=== PATIENT | female | born 1970 | race Caucasian/White ===

== ENCOUNTER 2018-10-20 08:58 | Emergency (ER) | payer MEDICAID ==
[2018-10-20] MEDS ORDERED: LORazepam 2 MG/ML SDV IVPUSH ONE ×2 (09:33→09:49)
[2018-10-20] MEDS ORDERED: Sodium Chloride 0.9% 1,000 ML IV SCH (09:45)
[2018-10-20] MEDS ORDERED: LORazepam 2 MG/ML SDV ONE (09:47)
--- NOTE | 2018-10-20 09:53 | EDM.PDOC ---
ED HPI GENERAL MEDICAL PROBLEM - General Chief Complaint: Chest Pain Stated Complaint: CHEST PAINS Time Seen by Provider: 10/20/18 09:30 Source of Information: Reports: Patient History Limitations: Reports: No Limitations - History of Present Illness INITIAL COMMENTS - FREE TEXT/NARRATIVE: 48-year-old female with chronic anxiety, is under a lot of stress right now as her was recently put on a 72 hour hold. She's been evaluated for cardiac problems in [place] several times, she is at a local concert but has been anxious for the last 48 hours, numbness in her hands and feet and today started having chest tightness so was brought in. She did not want to go to [place]. A friend brought her here. She arrived hyperventilating and very anxious, asking if she was having a heart attack. Initial blood pressure was 210 /85, she asked what her blood pressure was in when told she became more anxious. Duration: Day(s): (Waxing and waning over the last 2 days, symptoms resolved when sleeping) Chest Pain Score (Numeric/FACES): 6 - Related Data Allergies Allergy/AdvReac Type Severity Reaction Status Date / Time No Known Allergies Allergy Verified 10/20/18 09:05 Home Meds: Home Meds FLUoxetine HCl [Prozac] 40 mg PO DAILY 10/20/18 [History] Past Medical History Psychiatric History: Reports: Anxiety, Depression Social & Family History - Tobacco Use Smoking Status *Q: Never Smoker - Caffeine Use Caffeine Use: Reports: Tea - Recreational Drug Use Recreational Drug Type: Reports: Marijuana/Hashish ED ROS GENERAL - Review of Systems Review Of Systems: See Below Constitutional: Reports: Malaise. Denies: Fever, Chills HEENT: Reports: Other (Some facial numbness) Respiratory: Reports: Shortness of Breath Cardiovascular: Reports: Chest Pain GI/Abdominal: Reports: Nausea, Vomiting : Reports: No Symptoms Skin: Reports: No Symptoms Neurological: Reports: Dizziness Psychiatric: Reports: Anxiety ED EXAM, GENERAL - Physical Exam Exam: See Below Exam Limited By: No Limitations General Appearance: Alert, Anxious, Mild Distress Eye Exam: Bilateral Eye: Normal Inspection Respiratory/Chest: No Respiratory Distress, Lungs Clear Cardiovascular: Regular Rate, Rhythm GI/Abdominal: Soft, Non-Tender Neurological: Alert, Oriented Psychiatric: Anxious Course - Vital Signs Last Recorded V/S: Last Vital Signs Temp 96.3 F 07/19/19 09:32 Pulse 81 10/20/18 11:24 Resp 16 10/20/18 11:24 BP 141/79 H 10/20/18 11:24 Pulse Ox 98 10/20/18 11:24 - Orders/Labs/Meds Labs: Laboratory Tests 10/20/18 10/20/18 10/20/18 Range/Units 09:32 09:33 10:03 WBC 7.1 (4.5-11.0) K/uL RBC 4.74 (3.30-5.50) M/uL Hgb 14.5 (12.0-15.0) g/dL Hct 40.8 (36.0-48.0) % MCV 86 (80-98) fL MCH 31 (27-31) pg MCHC 36 (32-36) % Plt Count 296 (150-400) K/uL Neut % (Auto) 75 H (36-66) % Lymph % (Auto) 13 L (24-44) % [place] % (Auto) 12 H (2-6) % Eos % (Auto) 0 L (2-4) % Baso % (Auto) 1 (0-1) % Puncture Site Lt brachial ABG pH 7.658 H* (7.350-7.450) ABG pCO2 15.2 L* (35.0-42.0) mmHg ABG pO2 95.4 (75.0-100.0) mmHg ABG HCO3 17.4 L (22.0-26.0) mmol/L ABG Total CO2 14.6 L (21.0-25.0) mmol/L ABG O2 Saturation 98.7 H (95.0-98.0) % ABG O2 Content 19.1 (15.0-23.0) %vol ABG Base Excess -0.8 mm/L ABG Hemoglobin 14.0 (12.0-16.0) g/dL ABG Oxyhemoglobin 96.4 % ABG Carboxyhemoglobin 1.6 (0.0-1.6) % ABG Methemoglobin 0.7 % Wil Test Not performed O2 Delivery Device Room air Sodium (140-148) mmol/L Potassium (3.6-5.2) mmol/L Chloride (100-108) mmol/L Carbon Dioxide (21-32) mmol/L Anion Gap (5.0-14.0) mmol/L BUN (7-18) mg/dL Creatinine (0.6-1.0) mg/dL Est Cr Clr Drug Dosing mL/min Estimated GFR (MDRD) (>60) Glucose (74-106) mg/dL Calcium (8.5-10.1) mg/dL Troponin I (0.000-0.056) ng/mL Urine Opiates Screen Negative (NEGATIVE) Ur Oxycodone Screen Negative (NEGATIVE) Urine Methadone Screen Negative (NEGATIVE) Ur Propoxyphene Screen Negative (NEGATIVE) Ur Barbiturates Screen Negative (NEGATIVE) Ur Tricyclics Screen Negative (NEGATIVE) Ur Phencyclidine Scrn Negative (NEGATIVE) Ur Amphetamine Screen Negative (NEGATIVE) U Methamphetamines Scrn Negative (NEGATIVE) Urine MDMA Screen Negative (NEGATIVE) U Benzodiazepines Scrn Negative (NEGATIVE) U Cocaine Metab Screen Negative (NEGATIVE) U Marijuana (THC) Screen Presumptive positive H (NEGATIVE) 10/20/18 Range/Units 10:03 WBC (4.5-11.0) K/uL RBC (3.30-5.50) M/uL Hgb (12.0-15.0) g/dL Hct (36.0-48.0) % MCV (80-98) fL MCH (27-31) pg MCHC (32-36) % Plt Count (150-400) K/uL Neut % (Auto) (36-66) % Lymph % (Auto) (24-44) % Swain % (Auto) (2-6) % Eos % (Auto) (2-4) % Baso % (Auto) (0-1) % Puncture Site ABG pH (7.350-7.450) ABG pCO2 (35.0-42.0) mmHg ABG pO2 (75.0-100.0) mmHg ABG HCO3 (22.0-26.0) mmol/L ABG Total CO2 (21.0-25.0) mmol/L ABG O2 Saturation (95.0-98.0) % ABG O2 Content (15.0-23.0) %vol ABG Base Excess mm/L ABG Hemoglobin (12.0-16.0) g/dL ABG Oxyhemoglobin % ABG Carboxyhemoglobin (0.0-1.6) % ABG Methemoglobin % Wil Test O2 Delivery Device Sodium 137 L (140-148) mmol/L Potassium 3.9 (3.6-5.2) mmol/L Chloride 100 (100-108) mmol/L Carbon Dioxide 19 L (21-32) mmol/L Anion Gap 21.9 H (5.0-14.0) mmol/L BUN 8 (7-18) mg/dL Creatinine 0.8 (0.6-1.0) mg/dL Est Cr Clr Drug Dosing 88.64 mL/min Estimated GFR (MDRD) > 60 (>60) Glucose 102 (74-106) mg/dL Calcium 9.8 (8.5-10.1) mg/dL Troponin I < 0.017 (0.000-0.056) ng/mL Urine Opiates Screen (NEGATIVE) Ur Oxycodone Screen (NEGATIVE) Urine Methadone Screen (NEGATIVE) Ur Propoxyphene Screen (NEGATIVE) Ur Barbiturates Screen (NEGATIVE) Ur Tricyclics Screen (NEGATIVE) Ur Phencyclidine Scrn (NEGATIVE) Ur Amphetamine Screen (NEGATIVE) U Methamphetamines Scrn (NEGATIVE) Urine MDMA Screen (NEGATIVE) U Benzodiazepines Scrn (NEGATIVE) U Cocaine Metab Screen (NEGATIVE) U Marijuana (THC) Screen (NEGATIVE) Meds: Medications Discontinued Medications Generic Name Dose Route Start Last Admin Trade Name Freq PRN Reason Stop Dose Admin Sodium Chloride 1,000 mls @ 1,000 mls/hr 10/20/18 09:45 10/20/18 09:54 Normal Saline IV 1,000 mls/hr ASDIRECTED THO Administration Lorazepam 1 mg 10/20/18 09:49 10/20/18 09:50 Ativan IVPUSH 10/20/18 09:50 1 mg ONETIME ONE Administration Lorazepam Confirm 10/20/18 09:47 Ativan Administered 10/20/18 09:48 Dose 2 mg .ROUTE .STK-MED ONE - Re-Assessments/Exams Free Text/Narrative Re-Assessment/Exam: 10/20/18 10:50 ABGs were drawn, IV was started and the patient was given 1 L of normal saline along with 1 mg of Ativan IV. CBC CMP troponin and urine drug screen also obtained. ABGs were markedly abnormal with the CO2 of only 15 and pH of 7.65. Bag rebreathing was initiated. She became markedly improved after the Ativan, CBC and CMP returned normal troponin was 0. 10/20/18 11:12 Patient will be discharged with 6 additional doses of 1 mg Ativan to take twice a day until she can recheck with her primary provider next week. 10/20/18 12:30 Blood pressure normalized to 147/79 by discharge Departure - Departure Time of Disposition: 11:36 Disposition: Home, Self-Care 01 Clinical Impression: Acute hyperventilation syndrome - Discharge Information Instructions: Hyperventilation Referrals: PCP,None [Primary Care Provider] - Forms: ED Department Discharge Care Plan Goals: Use Ativan twice daily as needed for anxiety, bag rebreathing will be helpful if you start getting symptoms such as numbness of the hands and feet or face. You should recheck next week to talk about your anxiety unless you're markedly improving.
== END 2018-10-20 11:36 | disposition home or self-care (01) ==
LOC: JP.ED 08:58
DX: F45.8 Other somatoform disorders (principal); F41.9 Anxiety disorder, unspecified; F32.9 Major depressive disorder, single episode, unspecified; Z79.899 Other long term (current) drug therapy
CPT/HCPCS: 36415; 36600; 80048; 80305; 82803; 84484; 85025; 96361; 96374; 99284; J2060; J7030

== ENCOUNTER 2019-08-31 19:28 | Emergency (ER) | payer MEDICAID ==
[2019-08-31] MEDS ORDERED: Sodium Chloride 0.9% 10 ML Syringe FLUSH PRN (19:51)
[2019-08-31] MEDS ORDERED: Aspirin 81 MG Tab.Chew PO ONE (20:01)
[2019-08-31] MEDS ORDERED: Nitroglycerin 0.4 MG Tab.SL SL ONE (20:01)
[2019-08-31] MEDS ORDERED: Morphine 2 MG/ML SYRINGE IVPUSH ONE (20:05)
--- NOTE | 2019-08-31 20:07 | EDM.PDOC ---
ED HPI GENERAL MEDICAL PROBLEM - General Chief Complaint: Cardiovascular Problem Stated Complaint: CHEST PAIN Time Seen by Provider: 08/31/19 19:50 Source of Information: Reports: Patient, RN Notes Reviewed History Limitations: Reports: No Limitations - History of Present Illness INITIAL COMMENTS - FREE TEXT/NARRATIVE: Lillie presents tonight with chest pressure. She reports she had chest pressure this morning that went away. She states the chest pressure came back tonight one hour prior to arrival around 1830 and has not gone away. She has not taken any medication for the pressure. She denies SOB or pressure being brought on by activity. She states nothing has relieved the pressure. History of atrial fibrillation, cardiac ablation April,. 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: Psychiatric History: Reports: Anxiety, Depression - Infectious Disease History Infectious Disease History: Reports: Chicken Pox - Past Surgical History Cardiovascular Surgical History: Reports: Cardiac Ablation GI Surgical History: Reports: Appendectomy Female Surgical History: Reports: Hysterectomy Social & Family History - Family History Family Medical History: Noncontributory - Tobacco Use Smoking Status *Q: Former Smoker Used Tobacco, but Quit: Yes Month/Year Tobacco Last Used: 2013 - Caffeine Use Caffeine Use: Reports: Coffee, Tea Caffeine Use Comment: one cup of coffee and one cup of tea per day - Alcohol Use Days Per Week of Alcohol Use: 1 Number of Drinks Per Day: 3 Total Drinks Per Week: 3 - Recreational Drug Use Recreational Drug Use: Yes Recreational Drug Type: Reports: Marijuana/Hashish Recreational Drug Use Frequency: Daily ED ROS GENERAL - Review of Systems Review Of Systems: See Below Constitutional: Reports: No Symptoms HEENT: Reports: No Symptoms Respiratory: Reports: No Symptoms Cardiovascular: Reports: Chest Pain, Other (Negative stress test March 2019) . Denies: Blood Pressure Problem, Dyspnea on Exertion, Edema, Lightheadedness, Orthopnea, Palpitations, Syncope Endocrine: Reports: No Symptoms GI/Abdominal: Reports: No Symptoms : Reports: No Symptoms Musculoskeletal: Reports: No Symptoms Skin: Reports: No Symptoms Neurological: Reports: No Symptoms Psychiatric: Reports: No Symptoms Hematologic/Lymphatic: Reports: No Symptoms Immunologic: Reports: No Symptoms ED EXAM, GENERAL - Physical Exam Exam: See Below Exam Limited By: No Limitations General Appearance: Alert, WD/WN, No Apparent Distress Eye Exam: Bilateral Eye: Normal Inspection, PERRL Ears: Normal External Exam, Normal Canal, Hearing Grossly Normal, Normal TMs Nose: Normal Inspection, Normal Mucosa, No Blood Throat/Mouth: Normal Inspection, Normal Lips, Normal Teeth, Normal Gums, Normal Oropharynx, Normal Voice, No Airway Compromise Head: Atraumatic, Normocephalic Neck: Normal Inspection, Supple, Non-Tender, Full Range of Motion. No: Lymphadenopathy (R), Lymphadenopathy (L) Respiratory/Chest: No Respiratory Distress, Lungs Clear, Normal Breath Sounds, No Accessory Muscle Use, Chest Non-Tender Cardiovascular: Normal Peripheral Pulses, Regular Rate, Rhythm, No Edema, No Gallop, No Murmur, No Rub, Other (Chest pressure is not reproducable) Peripheral Pulses: 2+: Radial (L), Radial (R), Dorsalis Pedis (L), Dorsalis Pedis (R) GI/Abdominal: Normal Bowel Sounds, Soft, Non-Tender, No Organomegaly, No Distention, No Mass. No: Guarding, Rigid, Rebound, Tender Back Exam: Normal Inspection, Full Range of Motion. No: CVA Tenderness (R), CVA Tenderness (L) Extremities: Normal Inspection, Normal Range of Motion, Non-Tender, No Pedal Edema, Normal Capillary Refill Neurological: Alert, Oriented, Normal Cognition, No Motor/Sensory Deficits Psychiatric: Normal Affect, Normal Mood Skin Exam: Warm, Dry, Intact, Normal Color, No Rash Lymphatic: No Adenopathy EKG INTERPRETATION EKG Date: 08/31/19 Time: 19:40 Rhythm: NSR Rate (Beats/Min): 59 [place]: Normal P-Wave: Present QRS: Normal ST-T: Normal QT: Normal EKG Interpretation Comments: flipped t waves to leads V1 V2 Course - Vital Signs Last Recorded V/S: Last Vital Signs Temp 35.8 C L 08/31/19 19:54 Pulse 57 L 08/31/19 22:54 Resp 16 08/31/19 22:54 BP 127/67 08/31/19 22:54 Pulse Ox 98 08/31/19 22:54 - Orders/Labs/Meds Orders: Active Orders 24 hr Category Date Time Status EKG Documentation Completion [RC] ASDIRECTED Care 08/31/19 19:51 Active Chest 1V Frontal [CR] Stat Exams 08/31/19 19:50 Taken Sodium Chloride 0.9% [Normal Saline] 1,000 ml Med 08/31/19 20:15 Active IV ASDIRECTED Sodium Chloride 0.9% [Saline Flush] Med 08/31/19 19:51 Active 10 ml FLUSH ASDIRECTED PRN Saline Lock Insert [OM.PC] Routine Oth 08/31/19 19:51 Ordered EKG 12 Lead [EK] Routine Ther 08/31/19 19:50 Ordered Medication Orders Sodium Chloride (Normal Saline) 1,000 mls @ 50 mls/hr IV ASDIRECTED THO Last Admin: 08/31/19 20:17 Dose: 50 mls/hr Sodium Chloride (Saline Flush) 10 ml FLUSH ASDIRECTED PRN PRN Reason: Keep Vein Open Last Admin: 08/31/19 20:59 Dose: 10 ml Labs: Laboratory Tests 08/31/19 08/31/19 08/31/19 Range/Units 20:06 20:06 22:55 WBC 8.8 (4.5-11.0) K/uL RBC 4.33 (3.30-5.50) M/uL Hgb 13.6 (12.0-15.0) g/dL Hct 39.6 (36.0-48.0) % MCV 92 (80-98) fL MCH 31 (27-31) pg MCHC 34 (32-36) % Plt Count 253 (150-400) K/uL Neut % (Auto) 75 H (36-66) % Lymph % (Auto) 14 L (24-44) % [place] % (Auto) 9 H (2-6) % Eos % (Auto) 2 (2-4) % Baso % (Auto) 0 (0-1) % Sodium 140 (140-148) mmol/L Potassium 3.8 (3.6-5.2) mmol/L Chloride 102 (100-108) mmol/L Carbon Dioxide 26 (21-32) mmol/L Anion Gap 12.4 (5.0-14.0) mmol/L BUN 13 D (7-18) mg/dL Creatinine 0.9 (0.6-1.0) mg/dL Est Cr Clr Drug Dosing 75.15 mL/min Estimated GFR (MDRD) > 60 (>60) Glucose 99 (74-106) mg/dL Calcium 9.1 (8.5-10.1) mg/dL Troponin I < 0.017 < 0.017 (0.000-0.056) ng/mL Patient lab work reviewed, no acute findings. Second troponin negative. Meds: Medications Generic Name Dose Route Start Last Admin Trade Name Freq PRN Reason Stop Dose Admin Sodium Chloride 1,000 mls @ 50 mls/hr 08/31/19 20:15 08/31/19 20:17 Normal Saline IV 50 mls/hr ASDIRECTED THO Administration Sodium Chloride 10 ml 08/31/19 19:51 08/31/19 20:59 Saline Flush FLUSH 10 ml ASDIRECTED PRN Administration Keep Vein Open Discontinued Medications Generic Name Dose Route Start Last Admin Trade Name Freq PRN Reason Stop Dose Admin Aspirin 324 mg 08/31/19 20:01 08/31/19 20:15 Aspirin PO 08/31/19 20:02 324 mg ONETIME ONE Administration Al Hydroxide/Mg Hydroxide 15 0 ml 08/31/19 20:59 08/31/19 21:21 ml/ Lidocaine HCl 15 ml PO 08/31/19 21:00 30 ml ONETIME ONE Administration Lorazepam 0.5 mg 08/31/19 21:29 08/31/19 21:42 Ativan IVPUSH 08/31/19 21:30 0.5 mg ONETIME ONE Administration Morphine Sulfate 2 mg 08/31/19 20:05 08/31/19 20:58 Morphine IVPUSH 08/31/19 20:06 2 mg ONETIME ONE Administration Nitroglycerin 0.4 mg 08/31/19 20:01 08/31/19 20:15 Nitrostat SL 08/31/19 20:02 0.4 mg ONETIME ONE Administration - Radiology Interpretation Free Text/Narrative:: Chest x-ray reviewed, wet read, no acute findings. Radiologist read pending. - Re-Assessments/Exams Free Text/Narrative Re-Assessment/Exam: 08/31/19 20:01 Patient speaking on cell phone via ear piece during exam. 08/31/19 20:50 Patient reports headache from nitro. She will be given morphine IV 2mg. GI cocktail, no improvement. 08/31/19 21:29 Chest pressure unchanged. Vital signs stable, normal sinus rhythm, no ectopy. We will repeat troponin 3 hours after the first troponin. We will administer ativan to see if this helps. Decrease of chest pressure after ativan. 08/31/19 22:49 Patient reports chest pressure improved after ativan IV. She denies discomfort. She is resting, on cell phone. Findings reviewed with Dr. Arana, she is in agreement with plan. Patient will be discharged to home, take busprione as needed, follow up with primary as directed. Departure - Departure Time of Disposition: 23:58 Disposition: Home, Self-Care 01 Condition: Good Clinical Impression: Anxiety, Atypical chest pain Instructions: Nonspecific Chest Pain, Adult, Living With Anxiety Referrals: PCP,None [Primary Care Provider] - Forms: ED Department Discharge Additional Instructions: You have been evaluated and treated for atypical chest pain and anxiety. Your cardiac work up, EKG, troponin x 2, telemetry and lab work has been negative for cardiac findings. You are most likely suffering from anxiety. Drink plenty of water to stay hydrated. Take tylenol and ibuprofen as needed for pain Take buspirone 5mg three times a day as needed for anxiety. Take all your other medications as prescribed. Follow up with your primary provider in 3 to 7 days for a recheck, any need for further testing. Return to the emergency room for chest pain/pressure or concerns. Sepsis Event Note - Evaluation Sepsis Screening Result: No Definite Risk - Focused Exam Vital Signs: Vital Signs Temp Pulse Resp BP BP Pulse Ox 08/31/19 22:54 57 L 16 127/67 98 08/31/19 22:37 59 L 110/87 97 08/31/19 21:11 59 L 122/69 98 08/31/19 20:41 70 118/75 97 08/31/19 20:15 150/79 H 08/31/19 19:54 35.8 C L 61 18 142/56 H 99 08/31/19 19:48 35.8 C L 61 18 142/56 H 99 Date Exam was Performed: 09/01/19 Time Exam was Performed: 00:06 - My Orders Last 24 Hours: My Active Orders 08/31/19 19:50 Chest 1V Frontal [CR] Stat EKG 12 Lead [EK] Routine 08/31/19 19:51 EKG Documentation Completion [RC] ASDIRECTED Sodium Chloride 0.9% [Saline Flush] 10 ml FLUSH ASDIRECTED PRN Saline Lock Insert [OM.PC] Routine 08/31/19 20:15 Sodium Chloride 0.9% [Normal Saline] 1,000 ml IV ASDIRECTED - Assessment/Plan Last 24 Hours: My Active Orders 08/31/19 19:50 Chest 1V Frontal [CR] Stat EKG 12 Lead [EK] Routine 08/31/19 19:51 EKG Documentation Completion [RC] ASDIRECTED Sodium Chloride 0.9% [Saline Flush] 10 ml FLUSH ASDIRECTED PRN Saline Lock Insert [OM.PC] Routine 08/31/19 20:15 Sodium Chloride 0.9% [Normal Saline] 1,000 ml IV ASDIRECTED Assessment:: Anxiety Atypical chest pain Plan: Patient evaluated and treated for atypical chest pain and anxiety. Cardiac work up, EKG, troponin x 2, telemetry and lab work has been negative for cardiac findings. Patient most likely suffering from anxiety. Drink plenty of water to stay hydrated. Take tylenol and ibuprofen as needed for pain Take buspirone 5mg three times a day as needed for anxiety. Take all other medications as prescribed. Follow up with primary provider in 3 to 7 days for a recheck, any need for further testing. Return to the emergency room for chest pain/pressure or concerns.
[2019-08-31] MEDS ORDERED: Sodium Chloride 0.9% 1,000 ML IV SCH (20:15)
[2019-08-31] MEDS ORDERED: Alum Hydrox/Mag Hydrox/Simeth 15 ML, Lidocaine 2% 15 ML PO ONE ×2 (20:59)
[2019-08-31] MEDS ORDERED: LORazepam 2 MG/ML SDV IVPUSH ONE (21:29)
--- NOTE | 2019-09-03 09:19 | CR ---
CHEST: Portable 08/31/2019 at 8:17 PM CLINICAL HISTORY:Chest pain COMPARISON:None FINDINGS: The heart size, pulmonary vascularity and hilar structures are normal. No infiltrate effusion or pneumothorax is seen. IMPRESSION: No acute cardiopulmonary process.
== END 2019-09-01 00:16 | disposition home or self-care (01) ==
LOC: JP.ED 19:28
DX: R07.89 Other chest pain (principal); F41.9 Anxiety disorder, unspecified; F32.9 Major depressive disorder, single episode, unspecified; I48.91 Unspecified atrial fibrillation; Z79.899 Other long term (current) drug therapy; Z87.891 Personal history of nicotine dependence
CPT/HCPCS: 36415; 71045; 80048; 84484; 85025; 93005; 96361; 96374; 96375; 99285; A9270; J2060; J2270; J7030

== ENCOUNTER 2020-11-25 16:12 | Emergency (ER) | payer MEDICAID ==
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
== END 2020-11-25 18:52 | disposition home or self-care (01) ==
LOC: JP.ED 16:12
DX: U07.1 COVID-19 (principal); I48.91 Unspecified atrial fibrillation; Z87.891 Personal history of nicotine dependence; Z79.899 Other long term (current) drug therapy
CPT/HCPCS: 99284

== ENCOUNTER 2022-12-21 19:47 | Emergency (ER) | payer MEDICAID ==
[2022-12-21 20:43] LABS: BASOPHILS ABSOLUTE AUTO 0.03 K/uL (0.00-0.10); BASOPHILS PERCENT AUTO 0.5 % (0.1-1.3); EOSINOPHILS ABSOLUTE AUTO 0.03 K/uL (0.00-0.40); EOSINOPHILS PERCENT AUTO 0.5 % (0.0-5.4); HEMATOCRIT 36.6 % (34.3-46.0); HEMOGLOBIN 13.1 g/dL (11.2-15.5); IMMATURE GRAN ABSOLUTE AUTO 0.03 K/uL (0.00-0.23); IMMATURE GRAN PERCENT AUTO 0.5 % (0.0-0.7); LYMPHOCYTES ABSOLUTE AUTO 1.23 K/uL (0.8-3.3); LYMPHOCYTES PERCENT AUTO 21.6 % (11.4-47.7); MEAN CORPUSCULAR HGB CONC 35.8 g/dL (31.6-35.5); MEAN CORPUSCULAR VOLUME 89.5 fL (81.4-99.0); MONOCYTES ABSOLUTE AUTO 0.58 K/uL (0.20-0.90); MONOCYTES PERCENT AUTO 10.2 % (3.3-12.6); NEUTROPHILS PERCENT AUTO 66.7 % (40.0-78.1); PLATELET COUNT,PLT 207 K/uL (130-375); RED BLOOD CELL COUNT 4.09 M/uL (3.77-5.24); WHITE BLOOD CELL COUNT,WBC 5.7 K/uL (3.2-11.0)
[2022-12-21 21:12] LABS: A/G RATIO 1.2 (1.2-2.2); ALANINE AMINOTRANSFERASE,ALT 32 U/L (12-78); ALBUMIN 4.1 g/dL (3.4-5.0); ALKALINE PHOSPHATASE 63 U/L (46-116); ASPARTATE AMNIOTRANSFERASE,AST 18 U/L (15-37); BLOOD UREA NITROGEN,BUN 11 mg/dL (7-18); C-REACTIVE PROTEIN 0.15 mg/dL (0.0-0.3); CALCIUM 9.2 mg/dL (8.5-10.1); CARBON DIOXIDE,CO2 25 mmol/L (21-32); CHLORIDE,CL 102 mmol/L (100-108); EST CRCL DRUG DOSING (CG) 65.45 mL/min; ESTIMATED GFR 69 mL/min (>60); GLUCOSE RANDOM 86 mg/dL (74-106); POTASSIUM,K 3.7 mmol/L (3.6-5.2); PROTEIN TOTAL,TP 7.6 g/dL (6.4-8.2); SODIUM,NA 139 mmol/L (140-148)
[2022-12-21 21:13] LABS: ANION GAP 15.7 mmol/L (5.0-14.0)
== END 2022-12-21 21:53 | disposition home or self-care (01) ==
LOC: JP.ED 19:47
DX: R10.9 Unspecified abdominal pain (principal); Z79.899 Other long term (current) drug therapy
CPT/HCPCS: 36415; 80053; 83605; 84145; 84484; 85025; 86140; 99284